=== PATIENT | male | born 1960 | race Caucasian/White ===

== ENCOUNTER 2018-05-26 13:38 | Emergency (ER) | payer OTHER ==
[2018-05-26 13:45] VITALS: RESP 18
[2018-05-26] MEDS ORDERED: DIPH,PERTUS(ACELL)TETVAC-LF 0.5 ML VIAL IM ONE (13:51)
[2018-05-26] MEDS ORDERED: ceFAZolin 1,000 MG VIAL IM STA ×3 (13:51→15:02)
[2018-05-26] MEDS ORDERED: HYDROcodone/APAP 7.5-325MG 1 EACH TAB PO ONE (14:10)
--- NOTE | 2018-05-26 14:15 | ED ---
General Adult HPI - General Chief complaint: Wound/Laceration Stated complaint: Finger lac Time Seen by Provider: 05/26/18 13:50 Source: patient, RN notes reviewed, old records reviewed Mode of arrival: wheelchair Limitations: no limitations - History of Present Illness Initial comments: 57-year-old male patient with no pertinent past medical history presents to ED with mechanical injury to second digit on left hand. Patient was using a log splitter and had his digit between 2 logs when a crush injury occurred. Patient presents to ED with laceration on the medial and lateral aspect the second digit on his left hand. Patient does have full sensation and full range of motion. Systemic: Pt denies fatigue, myalgia, fever/chills, rash. Pt denies weakness, night sweats, weight loss. Neuro: Pt denies headache, visual disturbances, syncope or pre-syncope. HEENT: Pt denies ocular discharge or irritation, otalgia, rhinorrhea, pharyngitis or notable lymphadenopathy. Cardiopulmonary: Pt denies chest pain, SOB, heart palpitations, dyspnea on exertion. Abdominal/GI: Pt denies abdominal pain, n/v/d. : Pt denies dysuria, burning w/ urination, frequency/urgency. Denies new onset urinary or bowel incontinence. Neuro: Pt denies new onset weakness, paresthesias. - Related Data Home Medications Medication Instructions Recorded Confirmed QUEtiapine [SEROquel] 400 mg PO HS 08/02/15 05/26/18 clonazePAM [KlonoPIN] 0.5 mg PO BID@1000,1400 08/02/15 05/26/18 QUEtiapine [SEROquel] 50 mg PO HS 05/26/18 05/26/18 Ranitidine HCl [Zantac] 150 mg PO HS 05/26/18 05/26/18 Sertraline [Zoloft] 100 mg PO DAILY 05/26/18 05/26/18 clonazePAM [KlonoPIN] 2 mg PO HS 05/26/18 05/26/18 Previous Rx's Medication Instructions Recorded Cephalexin [Keflex] 500 mg PO Q12HR 10 Days cap 05/26/18 Sulfamethox-Tmp 800-160Mg [Bactrim 1 tab PO Q12HR #20 tab 05/26/18 DS 800-160 mg] Allergies Allergy/AdvReac Type Severity Reaction Status Date / Time divalproex sodium Allergy nightmares Verified 05/26/18 14:06 [From Depakote] Review of Systems ROS Statement: Those systems with pertinent positive or pertinent negative responses have been documented in the HPI. ROS Other: All systems not noted in ROS Statement are negative. Past Medical History Past Medical History: Asthma, COPD History of Any Multi-Drug Resistant Organisms: None Reported Past Surgical History: No Surgical Hx Reported Past Psychological History: Anxiety, Bipolar, Depression Smoking Status: Former smoker Past Alcohol Use History: None Reported Past Drug Use History: None Reported General Exam - General Exam Comments Initial Comments: Constitutional: NAD, AOX3, Pt has pleasant affect. HEENT: NC/AT, trachea midline, neck supple, no lymphadenopathy. Posterior pharynx non erythematous, without exudates. External ears appear normal, without discharge. Mucous membranes moist. Eyes PERRLA, EOM intact. There is no scleral icterus. No pallor noted. Cardiopulmonary: RRR, no murmurs, rubs or gallops, no JVD noted. Lungs CTAB in anterior and posterior choe. No peripheral edema. Abdominal exam: Abdomen soft and non-distended. Abdomen non-tender to palpation in all 4 quadrants. Bowel sounds active in LLQ. No hepatosplenomegaly. No ecchymosis Neuro: CN II-XII grossly intact. No nuchal rigidity. MSK: Patient has laceration of second digit of left hand secondary to crush injury. No nailbed involvement. Wound explored and irrigated vigorously with 1 L of normal saline. No bony or ligamentous involvement noted. Wound was cleaned, no foreign bodies. Wound closed primarily with 23 simple interrupted sutures. Total length of laceration 8 cm. Patient sensation intact. Capillary refill less than 2 seconds. Patient has full range of motion of finger. Flexion and extension of DIP intact. Flexion extension of PIP and MCP intact. Patient has no other areas of tenderness, no other injury. Patient has full range of motion hand and wrist. No posterior calf tenderness bilaterally, homans sign negative bilaterally. Posterior tibialis and radial pulse +2 bilaterally. Sensation intact in upper and lower extremities. Full active ROM in upper and lower extremities, 5/5 stregnth. Limitations: no limitations Course Vital Signs 05/26/18 05/26/18 13:41 15:49 Temperature 97.5 F L 98.2 F Pulse Rate 84 78 Respiratory 18 18 Rate Blood Pressure 135/85 133/78 O2 Sat by Pulse 99 99 Oximetry Procedures - Laceration Laceration #1 Consent Obtained: verbal consent Indication: laceration Site: hand (2nd digit L hand) Size (cm): 8 Description: stellate Depth: simple, single layer (no bony or tendinous involvement, no foreign body.) Anesthetic Used: lidocaine 1% Anesthesia Technique: nerve block Amount (mls): 4 Pre-repair: wound explored, irrigated extensively (1 L NS), deep structures intact Type of Sutures: nylon Size of Sutures: 5-0 Number of Sutures: 23 Technique: simple, interrupted Patient Tolerated Procedure: well, no complications Additional Comments: Patient has full range of motion of finger. Flexion and extension intact at MCP , PIP DIP joint. Wound irrigated extensively. No foreign bodies. No bony tenderness involvement. Patient to rest when intact before and after procedure. Capillary refill less than 2 seconds. Patient placed in finger splint. Patient to follow-up with hand surgeon tomorrow. Case discussed in depth with Dr. Lopez. Medical Decision Making - Medical Decision Making 57-year-old male patient presents to ED with crush injury to second digit left hand. Patient had it stuck between 2 logs while operating a log splitter. Patient had no other injury. Plain films displayed a nondisplaced fracture of the tuft of the distal phalanx of the index finger of left hand. No other injury. Total laceration length 8 cm, no nailbed involvement. Wound closed primarily 23 simple interrupted sutures. Patient administered 1 g cefazolin ED. Patient tetanus updated. Patient to be discharged with Bactrim and Keflex. Patient placed in a straight finger splint. Patient to return to ED in 710 days for suture removal. Patient to follow-up with Dr. Valadez orthopedic surgeon tomorrow. Patient educated extensively about signs symptoms of infection, patient verbalized understanding. Patient to return to ED if descends symptoms or condition worsens in any way. Pt not driving home. Pt discussed in length with Dr. Lopez. Disposition Clinical Impression: Laceration, Closed fracture of tuft of distal phalanx of finger Disposition: HOME SELF-CARE Condition: Stable Instructions (If sedation given, give patient instructions): Care For Your Stitches (ED), Laceration (DC) Additional Instructions: Patient to adhere to previously discussed treatment plan and will take medication(s) as directed. Patient to follow up with PCP in 1-2 days. Patient to return to ED if symptoms do not improve. Prescriptions: Cephalexin [Keflex] 500 mg PO Q12HR 10 Days cap Sulfamethox-Tmp 800-160Mg [Bactrim DS 800-160 mg] 1 tab PO Q12HR #20 tab Is patient prescribed a controlled substance at d/c from ED?: No Referrals: Agus Ansari MD [Primary Care Provider] - 1-2 days Herve Valadez DO [Medical Doctor] - 1-2 days Time of Disposition: 15:33
--- NOTE | 2018-05-26 14:18 | XR ---
EXAMINATION TYPE: XR hand complete LT DATE OF EXAM: 05/26/2018 COMPARISON: None HISTORY: Second digit trauma. Pain. TECHNIQUE: 3 views FINDINGS: There is nondisplaced fracture of the tuft of the distal phalanx of the index finger left h and. There is laceration deformity of the soft tissues at the DIP joint. I see no foreign body. IMPRESSION: Laceration deformity and tuft fracture.
[2018-05-26] MEDS ORDERED: LIDOCAINE 1% INJ 10MG/ML (20 ML MDV) SQ STA (15:21)
[2018-05-26 15:50] VITALS: BP 133/78; PULSE 78; TEMP 98.2
== END 2018-05-26 15:51 | disposition home or self-care (01) ==
LOC: EC 13:38
DX: S62.631A Displaced fracture of distal phalanx of left index finger, initial encounter for closed fracture (principal); S61.211A Laceration without foreign body of left index finger without damage to nail, initial encounter; F41.9 Anxiety disorder, unspecified; F32.9 Major depressive disorder, single episode, unspecified; Z87.891 Personal history of nicotine dependence; Z79.899 Other long term (current) drug therapy; Z88.8 Allergy status to other drugs, medicaments and biological substances; Z53.20 Procedure and treatment not carried out because of patient's decision for unspecified reasons; W31.2XXA Contact with powered woodworking and forming machines, initial encounter; Y93.89 Activity, other specified; Y92.89 Other specified places as the place of occurrence of the external cause
CPT/HCPCS: 73130; 99283; 12004; 96372; J0690; J2001

== ENCOUNTER 2019-09-18 14:56 | Emergency (ER) | payer OTHER ==
[2019-09-18] MEDS ORDERED: KETOROLAC 60 MG/2 ML VIAL IVP STA (15:23)
--- NOTE | 2019-09-18 15:23 | ED ---
General Adult HPI - General Chief complaint: Chest Pain Stated complaint: chest pain-3 days Time Seen by Provider: 09/18/19 15:00 Source: patient, RN notes reviewed, old records reviewed Mode of arrival: ambulatory Limitations: no limitations - History of Present Illness Initial comments: This is a 59-year-old male who presents emergency Department complaining of chest pain for the last 3 days. Patient states the pain is worse with coughing taking a deep breath or palpating the area. Patient states he has no pain if he remains still and breathes normally. Patient states he quit smoking about 3 months ago. Patient denies any shortness of breath. Patient denies any fever chills or cough. Patient denies any abdominal pain. Patient denies being lightheaded or dizzy. Patient denies any swelling to the legs or calf tenderness. Patient states that he does a lot of work lifting and moving and he thinks he probably just hurt it doing that but he wanted to be sure because his been 3. Invasive pain with movement and deep breathing - Related Data Home Medications Medication Instructions Recorded Confirmed QUEtiapine [SEROquel] 400 mg PO HS 08/02/15 05/26/18 clonazePAM [KlonoPIN] 0.5 mg PO BID@1000,1400 08/02/15 05/26/18 QUEtiapine [SEROquel] 50 mg PO HS 05/26/18 05/26/18 Ranitidine HCl [Zantac] 150 mg PO HS 05/26/18 05/26/18 Sertraline [Zoloft] 100 mg PO DAILY 05/26/18 05/26/18 clonazePAM [KlonoPIN] 2 mg PO HS 05/26/18 05/26/18 Previous Rx's Medication Instructions Recorded Cephalexin [Keflex] 500 mg PO Q12HR 10 Days cap 05/26/18 Sulfamethox-Tmp 800-160Mg [Bactrim 1 tab PO Q12HR #20 tab 05/26/18 DS 800-160 mg] Ibuprofen [Motrin] 600 mg PO Q6HR PRN #20 tab 09/18/19 Allergies Allergy/AdvReac Type Severity Reaction Status Date / Time divalproex sodium Allergy nightmares Verified 05/26/18 14:06 [[facility] Review of Systems ROS Statement: Those systems with pertinent positive or pertinent negative responses have been documented in the HPI. ROS Other: All systems not noted in ROS Statement are negative. Past Medical History Past Medical History: Asthma, COPD History of Any Multi-Drug Resistant Organisms: None Reported Past Surgical History: Orthopedic Surgery Additional Past Surgical History / Comment(s): shoulder Past Psychological History: Anxiety, Bipolar, Depression, Schizophrenia Smoking Status: Former smoker Past Alcohol Use History: None Reported Past Drug Use History: None Reported General Exam - General Exam Comments Initial Comments: GENERAL: Patient is well-developed and well-nourished. Patient is nontoxic and well-h ydrated and is in no acute distress. ENT: Neck is soft and supple. No significant lymphadenopathy is noted. Oropharynx is clear. Moist mucous membranes. Neck has full range of motion without elic iting any pain. EYES: The sclera were anicteric and conjunctiva were pink and moist. Extraocular movements were intact and pupils were equal round and reactive to light. Eyelids were unremarkable. PULMONARY: Unlabored respirations. Good breath sounds bilaterally. No audible rales rhonchi or wheezing was noted. CARDIOVASCULAR: There is a regular rate and rhythm without any murmurs gallops or rubs. Chest pain is reproducible just below the clavicle on the left side. ABDOMEN: Soft and nontender with normal bowel sounds. SKIN: Skin is clear with no lesions or rashes and otherwise unremarkable. NEUROLOGIC: Patient is alert and oriented x3. Cranial nerves II through XII are grossly intact. Motor and sensory are also intact. Normal speech, volume and content. Symmetrical smile. MUSCULOSKELETAL: Normal extremities with adequate strength and full range of motion. No lower e xtremity swelling or edema. No calf tenderness. LYMPHATICS: No significant lymphadenopathy is noted PSYCHIATRIC: Normal psychiatric evaluation. Limitations: no limitations Course Vital Signs 09/18/19 09/18/19 09/18/19 15:06 16:00 17:00 Temperature 97.9 F Pulse Rate 79 73 68 Respiratory 18 18 15 Rate Blood Pressure 137/101 129/100 149/109 O2 Sat by Pulse 96 99 99 Oximetry Medical Decision Making - Medical Decision Making EKG shows normal sinus rhythm at 80 bpm DE interval 124 QRS is 94 QT interval 374 QTC is 431. Patient's EKG shows no ST segment elevation or depression. Chest x-ray shows no acute abnormality. CT of the chest shows no pulmonary embolism or any other acute abnormality. I went back into reevaluate the patient and he stated that the Toradol really helped his pain and he can barely feel with a deep breath now. Patient states if he rests as before he has no pain. After the patient initially did not want to be admitted at this time he stated he would follow-up. - Lab Data Result diagrams: 09/18/19 15:15 09/18/19 15:15 Lab Results 09/18/19 09/18/19 09/18/19 Range/Units 15:15 15:15 15:15 WBC 7.8 (3.8-10.6) k/uL RBC 4.36 (4.30-5.90) m/uL Hgb 13.6 (13.0-17.5) gm/dL Hct 41.5 (39.0-53.0) % MCV 95.3 (80.0-100.0) fL MCH 31.3 (25.0-35.0) pg MCHC 32.8 (31.0-37.0) g/dL RDW 12.7 (11.5-15.5) % Plt Count 225 (150-450) k/uL Neutrophils % 73 % Lymphocytes % 13 % Monocytes % 6 % Eosinophils % 5 % Basophils % 0 % Neutrophils # 5.7 (1.3-7.7) k/uL Lymphocytes # 1.0 (1.0-4.8) k/uL Monocytes # 0.4 (0-1.0) k/uL Eosinophils # 0.4 (0-0.7) k/uL Basophils # 0.0 (0-0.2) k/uL PT 10.2 (9.0-12.0) sec INR 1.0 (<1.2) APTT 23.6 (22.0-30.0) sec D-Dimer 0.74 H (<0.60) mg/L FEU Sodium 135 L (137-145) mmol/L Potassium 4.3 (3.5-5.1) mmol/L Chloride 104 (98-107) mmol/L Carbon Dioxide 21 L (22-30) mmol/L Anion Gap 10 mmol/L BUN 11 (9-20) mg/dL Creatinine 1.10 (0.66-1.25) mg/dL Est GFR (CKD-EPI)AfAm 84 (>60 ml/min/1.73 sqM) Est GFR (CKD-EPI)NonAf 73 (>60 ml/min/1.73 sqM) Glucose 123 H (74-99) mg/dL Calcium 9.7 (8.4-10.2) mg/dL Magnesium 1.8 (1.6-2.3) mg/dL Total Bilirubin 0.5 (0.2-1.3) mg/dL AST 37 (17-59) U/L ALT 21 (4-49) U/L Alkaline Phosphatase 108 (38-126) U/L Troponin I (0.000-0.034) ng/mL Total Protein 7.6 (6.3-8.2) g/dL Albumin 4.4 (3.5-5.0) g/dL 09/18/19 Range/Units 15:15 WBC (3.8-10.6) k/uL RBC (4.30-5.90) m/uL Hgb (13.0-17.5) gm/dL Hct (39.0-53.0) % MCV (80.0-100.0) fL MCH (25.0-35.0) pg MCHC (31.0-37.0) g/dL RDW (11.5-15.5) % Plt Count (150-450) k/uL Neutrophils % % Lymphocytes % % Monocytes % % Eosinophils % % Basophils % % Neutrophils # (1.3-7.7) k/uL Lymphocytes # (1.0-4.8) k/uL Monocytes # (0-1.0) k/uL Eosinophils # (0-0.7) k/uL Basophils # (0-0.2) k/uL PT (9.0-12.0) sec INR (<1.2) APTT (22.0-30.0) sec D-Dimer (<0.60) mg/L FEU Sodium (137-145) mmol/L Potassium (3.5-5.1) mmol/L Chloride (98-107) mmol/L Carbon Dioxide (22-30) mmol/L Anion Gap mmol/L BUN (9-20) mg/dL Creatinine (0.66-1.25) mg/dL Est GFR (CKD-EPI)AfAm (>60 ml/min/1.73 sqM) Est GFR (CKD-EPI)NonAf (>60 ml/min/1.73 sqM) Glucose (74-99) mg/dL Calcium (8.4-10.2) mg/dL Magnesium (1.6-2.3) mg/dL Total Bilirubin (0.2-1.3) mg/dL AST (17-59) U/L ALT (4-49) U/L Alkaline Phosphatase (38-126) U/L Troponin I <0.012 (0.000-0.034) ng/mL Total Protein (6.3-8.2) g/dL Albumin (3.5-5.0) g/dL Disposition Clinical Impression: Chest wall pain Disposition: HOME SELF-CARE Condition: Good Instructions (If sedation given, give patient instructions): Ibuprofen (By mouth) Prescriptions: Ibuprofen [Motrin] 600 mg PO Q6HR PRN #20 tab PRN Reason: For pain Is patient prescribed a controlled substance at d/c from ED?: No Referrals: Agus Ansari MD [Primary Care Provider] - 1-2 days Time of Disposition: 17:32
[2019-09-18 15:36] LABS: Basophils % (A) 0 %; Eosinophils # (A) 0.4 k/uL (0-0.7); Eosinophils % (A) 5 %; HCT 41.5 % (39.0-53.0); HGB 13.6 gm/dL (13.0-17.5); Lymphocytes % (A) 13 %; MCH 31.3 pg (25.0-35.0); MCHC 32.8 g/dL (31.0-37.0); MCV 95.3 fL (80.0-100.0); Mean Platelet Volume 8.3; Monocytes # (A) 0.4 k/uL (0-1.0); Monocytes % (A) 6 %; Neutrophils # (A) 5.7 k/uL (1.3-7.7); Neutrophils % (A) 73 %; Platelet Count 225 k/uL (150-450); RBC 4.36 m/uL (4.30-5.90); RDW 12.7 % (11.5-15.5); WBC 7.8 k/uL (3.8-10.6)
[2019-09-18 15:40] LABS: Albumin 4.4 g/dL (3.5-5.0); Calcium 9.7 mg/dL (8.4-10.2); Magnesium 1.8 mg/dL (1.6-2.3); Potassium 4.3 mmol/L (3.5-5.1); Total Bilirubin 0.5 mg/dL (0.2-1.3); Total Protein 7.6 g/dL (6.3-8.2)
[2019-09-18 15:55] LABS: Partial Thromboplastin Time 23.6 sec (22.0-30.0); Prothrombin Time 10.2 sec (9.0-12.0)
[2019-09-18 15:59] LABS: D-Dimer 0.74 mg/L FEU (<0.60)
--- NOTE | 2019-09-18 16:01 | XR ---
EXAMINATION TYPE: XR chest 2V DATE OF EXAM: 09/18/2019 COMPARISON: 08/02/2015 HISTORY: Chest pain TECHNIQUE: Frontal and lateral views of the chest are obtained. FINDINGS: There is no focal air space opacity, pleural effusion, or pneumothorax seen. The cardiac silhouette size is within normal limits. The osseous structures are intact. Moderate multilevel deg enerative change of the spine. Calcification over the right scapula is unchanged from 2016 and may re present a loose joint body. IMPRESSION: No acute cardiopulmonary process.
[2019-09-18 17:12] VITALS: BP 149/109; PULSE 68; RESP 15
--- NOTE | 2019-09-18 17:15 | CT ---
EXAMINATION TYPE: CT chest angio for PE DATE OF EXAM: 09/18/2019 COMPARISON: None HISTORY: SOB, elevated d-dimer CT DLP: 349.1 mGycm Automated exposure control for dose reduction was used. CONTRAST: Performed with IV Contrast, patient injected with 100 mL of Isovue 370. There are 3-D post processed images. Mediastinum is normal. Thoracic aorta appears normal with no sig n of aneurysm or dissection. Heart size is normal. There is no pericardial effusion. There are no hil ar masses. There is no pleural effusion. Upper abdominal soft tissues are intact. There is mild ather omatous change in the abdominal aorta. There is normal contrast opacification of the pulmonary arteries. There are no filling defects. There is a 12 mm noncalcified nodule adjacent to the major fissure in the superior segment left lower lobe. Unchanged compared to CT scan of 2012 and therefore benign. The other lung choe are clear. T here are some spondylotic changes in the lower thoracic spine. There is no compression fracture. Ster num is intact. The ribs appear intact. Impression no evidence of pulmonary embolism. No evidence of active cardiopulmonary disease.
[2019-09-18 17:55] VITALS: TEMP 98
== END 2019-09-18 17:54 | disposition home or self-care (01) ==
LOC: EC 14:56
DX: R07.89 Other chest pain (principal); F41.9 Anxiety disorder, unspecified; F31.9 Bipolar disorder, unspecified; Z79.899 Other long term (current) drug therapy; Z88.8 Allergy status to other drugs, medicaments and biological substances; Z87.891 Personal history of nicotine dependence
CPT/HCPCS: 36415; 93005; 85379; 80053; 83735; 84484; 85025; 85610; 85730; 71046; 71275; 99285; 96374; J1885; Q9967

== ENCOUNTER → 2020-11-01 | Outpatient (CLI) | payer OTHER ==
[2020-11-01 18:26] LABS: Basophils # (A) 0.04 X 10*3/uL (0.00-0.10); Basophils % (A) 0.5 %; Eosinophils # (A) 0.42 X 10*3/uL (0.04-0.35); Eosinophils % (A) 5.4 %; HCT 40.3 % (39.6-50.0); HGB 13.7 g/dL (13.0-17.0); Lymphocytes # (A) 1.66 X 10*3/uL (0.90-5.00); Lymphocytes % (A) 21.3 %; MCH 31.5 pg (27.0-32.0); MCV 92.6 fL (80.0-97.0); Mean Platelet Volume 11.1 fL (9.5-12.2); Monocytes # (A) 0.72 X 10*3/uL (0.20-1.00); Monocytes % (A) 9.2 %; Neutrophils # (A) 4.91 X 10*3/uL (1.80-7.70); Neutrophils % (A) 63.1 %; Platelet Count 235 X 10*3/uL (140-440); RBC 4.35 X 10*6/uL (4.40-5.60); RDW 13.3 % (11.5-14.5); WBC 7.79 X 10*3/uL (4.50-10.00)
[2020-11-01 19:01] LABS: African American GFR (CKD) 93.7 (60.0-200.0); Albumin 4.4 g/dL (3.80-4.90); Albumin/Globulin Ratio 1.57 (1.60-3.17); Anion Gap 7.8 mmol/L (4.00-12.00); Calcium 8.9 mg/dL (8.7-10.3); Carbon Dioxide 21.2 mmol/L (21.6-31.8); Chol/HDL Ratio 3.93; Globulin 2.8 g/dL (1.6-3.3); LDL Cholesterol,Calculated 150.6 mg/dL (0.0-131.0); Non-African American GFR(CKD) 80.9 (60.0-200.0); Potassium 4.4 mmol/L (3.5-5.5); Total Bilirubin 0.5 mg/dL (0.2-1.2); Total Protein 7.2 g/dL (6.2-8.2); VLDL Calculation 45.4 mg/dL (5.00-40.00)
[2020-11-01 19:10] LABS: Hemoglobin A1C 5.5 % (4.0-6.0)
[2020-11-01 19:42] LABS: T4, Free (Free Thyroxine) 0.7 ng/dL (0.80-1.80)
== END | disposition home or self-care (01) ==
LOC: LABWHC1 11:00
PROVIDERS: ATTEND Nurse Practitioner Family
DX: F31.73 Bipolar disorder, in partial remission, most recent episode manic (principal)
CPT/HCPCS: 36415; 80053; 80061; 82306; 82607; 83036; 84436; 84439; 84443; 84479; 85025